=== PATIENT | male | born 1985 | race Caucasian/White ===

== ENCOUNTER 2020-04-19 09:09 | Observation (INO) ==
[2020-04-19] MEDS ORDERED: Naloxone 0.4 MG/ML INJ IVP PRN (11:59)
[2020-04-19] MEDS ORDERED: Ondansetron 4 MG/2 ML VIAL IVP PRN (11:59)
[2020-04-19] MEDS ORDERED: *HR* Dextrose 50 % in Water (Vial) 50 ML VIAL IVP PRN (12:51)
[2020-04-19] MEDS ORDERED: D5% in Water 1,000 ML IVC PRN (12:51)
[2020-04-19] MEDS ORDERED: Dextrose Gel 15 GM/37.5 ML TUBE PO PRN ×2 (12:51)
[2020-04-19] MEDS ORDERED: lisinopriL 5 MG TABLET PO SCH (13:00)
[2020-04-19] MEDS: Insulin LISPRO 300 UNITS/3 ML VIAL SQ SCH ×2 (13:23→17:08)
[2020-04-19] MEDS: 0.9 % Sodium Chloride 1,000 ML IVC SCH (14:20)
[2020-04-19 18:24] LABS: Adenovirus DETECTED (Not Detect); Bordetella Pertussis Not Detected (Not Detect); Chlamydophila pneumoniae Not Detected (Not Detect); Coronavirus 229E Not Detected (Not Detect); Coronavirus HKU1 Not Detected (Not Detect); Coronavirus NL63 Not Detected (Not Detect); Coronavirus OC43 Not Detected (Not Detect); Human Metapneumovirus Not Detected (Not Detect); Human Rhinovirus/Enterovirus Not Detected (Not Detect); Influenza A Subtype 2009 H1 Not Detected (Not Detect); Influenza B Not Detected (Not Detect); Mycoplasma pneumoniae Not Detected (Not Detect); Parainfluenza Virus 1 Not Detected (Not Detect); Parainfluenza Virus 2 Not Detected (Not Detect); Parainfluenza Virus 3 Not Detected (Not Detect); Parainfluenza Virus 4 Not Detected (Not Detect); Respiratory Syncytial Virus Not Detected (Not Detect); SARS-CoV-2 Not Detected (Not Detect)
[2020-04-20] MEDS: Insulin LISPRO 300 UNITS/3 ML VIAL SQ SCH ×2 (00:36→05:40)
[2020-04-20] MEDS: 0.9 % Sodium Chloride 1,000 ML IVC SCH ×2 (00:38→11:56)
[2020-04-20 05:33] LABS: Basophils # 0.1 K/mcL (0.0-0.2); Basophils % 0.7 %; Eosinophils # 0.2 K/mcL (0.0-0.6); Eosinophils % 1.9 %; Hematocrit 42.9 % (37.5-50.1); Hemoglobin 14.2 g/dL (12.9-16.9); Immature Granulocytes % 0.3 % (0-4); Lymphocytes # 3.2 K/mcL (0.6-4.6); Lymphocytes % 35.4 %; Mean Corpuscular HGB Conc 33.1 g/dL (31.6-35.5); Mean Corpuscular Volume 93.7 fL (83.0-100.0); Mean Platelet Volume 10.7 fL (9.4-12.4); Monocytes # 0.5 K/mcL (0.0-1.3); Platelet Count 234 K/mcL (140-400); Red Blood Count 4.58 M/mcL (4.19-5.50); Red Cell Distribution Width 12.3 % (11.5-14.5); Segmented Neutrophils % 55.7 %
[2020-04-20 05:49] LABS: BUN/Creatinine Ratio 19 (6-26); Blood Urea Nitrogen 12 mg/dL (6-20); Calcium 8.7 mg/dL (8.6-10.3); Carbon Dioxide 24 mEq/L (23-29); Chloride 108 mEq/L (98-107); Chol/HDL Ratio 6.9 (0-4.9); Glucose 209 mg/dL (70-105); Magnesium 1.7 mg/dL (1.6-2.6); Osmolality,Calculated 300 (280-300); Phosphorous 2.8 mg/dL (2.7-4.5); Potassium 3.7 mEq/L (3.5-5.1); Sodium 142 mEq/L (136-145); eGFR For African Americans > 60 (> 60); eGFR For Non-African Americans > 60 (> 60)
[2020-04-20] MEDS ORDERED: Lidocaine -MPF 2% 2 ML VIAL ONE ×2 (08:49→10:15)
[2020-04-20] MEDS ORDERED: Ondansetron 4 MG/2 ML VIAL ONE ×2 (08:49→10:15)
[2020-04-20] MEDS ORDERED: Dexamethasone 4 MG/ML VIAL ONE ×2 (08:49→10:15)
[2020-04-20] MEDS ORDERED: Lidocaine HCL 4 ML Topical Solution (Laryng-O-Jet Kit Sterile Pak) TP ONE ×2 (08:49→10:15)
[2020-04-20] MEDS ORDERED: *HR* Succinylcholine 200 MG/10 ML VIAL IVP ONE ×2 (08:49→10:15)
[2020-04-20] MEDS ORDERED: *HR* Propofol 200 MG/20 ML VIAL IVP ONE ×2 (08:50→10:12)
[2020-04-20] MEDS ORDERED: *HR* Midazolam HCl 2 MG/2 ML VIAL ONE ×2 (08:51→10:12)
[2020-04-20] MEDS ORDERED: *HR* FentaNYL (PF) 100 MCG/2 ML VIAL ONE ×2 (08:51→10:12)
[2020-04-20] MEDS ORDERED: lisinopriL 5 MG TABLET PO SCH (09:15)
[2020-04-20] MEDS ORDERED: *HR* HYDROmorphone PF 0.5 MG/0.5 ML SYRINGE IVP PRN ×2 (10:22→11:50)
[2020-04-20] MEDS ORDERED: *HR* FentaNYL (PF) 100 MCG/2 ML VIAL IVP PRN (10:22)
[2020-04-20] MEDS ORDERED: ceFAZolin 3,000 MG in Water for inj. (sterile) 30 ML IVP ONE (11:01)
[2020-04-20] MEDS ORDERED: CeFAZolin Syr 3,000MG/30 ML 3,000 MG/30 ML SYRINGE IVPB ONE (11:15)
[2020-04-20 11:50] LABS: Estimated Average Glucose 226 mg/dl
[2020-04-20] MEDS ORDERED: Naloxone 0.4 MG/ML INJ IVP PRN (11:50)
[2020-04-20] MEDS ORDERED: 0.9 % Sodium Chloride 1,000 ML IVC SCH (11:50)
[2020-04-20] MEDS ORDERED: Ondansetron 4 MG/2 ML VIAL IVP PRN (11:50)
[2020-04-20] MEDS ORDERED: Insulin LISPRO 300 UNITS/3 ML VIAL SQ SCH (12:00)
[2020-04-20 13:35] VITALS: BP 142/72
[2020-04-21] MEDS ORDERED: lisinopriL 5 MG TABLET PO SCH (09:00)
== END 2020-04-20 14:36 | disposition home or self-care (01) ==
LOC: 3BNU → SUATTDRO 11:04
PROVIDERS: ADMIT Internal Medicine; ATTEND Internal Medicine